=== PATIENT | female | born 1990 | race African-American/Black ===

== ENCOUNTER 2016-07-16 13:38 | Emergency (ER) | payer MEDICAID ==
[~2016-07-16] VITALS: Ht 165.1 cm; Wt 74.0 kg
[2016-07-16 13:39] VITALS: BP 130/87
[2016-07-16 14:55] LABS: ASPARTATE AMINO TRANSFERASE 54 U/L (15-37); BLOOD UREA NITROGEN 11 mg/dL (7-18)
== END 2016-07-16 15:31 | disposition left against medical advice (07) ==
LOC: ED 15:25
DX: N93.9 Abnormal uterine and vaginal bleeding, unspecified (principal); Z97.5 Presence of (intrauterine) contraceptive device; Z53.21 Procedure and treatment not carried out due to patient leaving prior to being seen by health care provider
CPT/HCPCS: 36415; 80053; 84703; 85025; 99281

== ENCOUNTER 2016-09-15 20:55 | Emergency (ER) | payer SELFPAY ==
[~2016-09-15] VITALS: Ht 165.1 cm; Wt 71.7 kg
[2016-09-15 22:40] LABS: ASPARTATE AMINO TRANSFERASE 31 U/L (15-37); BLOOD UREA NITROGEN 15 mg/dL (7-18)
[2016-09-15] MEDS ORDERED: SERT100T PO (23:04)
[2016-09-15 23:56] VITALS: BP 101/55
== END 2016-09-15 23:58 | disposition home or self-care (01) ==
LOC: ED 23:52
DX: L98.499 Non-pressure chronic ulcer of skin of other sites with unspecified severity (principal); N12 Tubulo-interstitial nephritis, not specified as acute or chronic; F17.210 Nicotine dependence, cigarettes, uncomplicated; F12.10 Cannabis abuse, uncomplicated
CPT/HCPCS: 36415; 80053; 85025; 99284

== ENCOUNTER 2016-11-05 19:14 | Emergency (ER) | payer MEDICAID ==
[~2016-11-05] VITALS: Ht 165.1 cm; Wt 69.6 kg
[~2016-11-05 19:14] MED LIST: SERT100T PO
[2016-11-05 19:18] VITALS: BP 113/75
[2016-11-05] MEDS ORDERED: FLUORESCEIN OPHTHALMIC 1 MG STRIP LEFTEYE ONE (19:30)
[2016-11-05] MEDS ORDERED: PROPARACAINE OPHTH 0.5%, 15ML LEFTEYE ONE (19:30)
[2016-11-05] MEDS ORDERED: PROPARACAINE OPHTH 0.5%, 15ML ONE (19:36)
[2016-11-05] MEDS ORDERED: FLUORESCEIN OPHTHALMIC 1 MG STRIP ONE ×2 (19:36→19:40)
== END 2016-11-05 20:15 | disposition home or self-care (01) ==
LOC: ED 20:09
DX: H57.12 Ocular pain, left eye (principal); H00.014 Hordeolum externum left upper eyelid
CPT/HCPCS: 99283